=== PATIENT | male | born 2000 | race Caucasian/White ===

== ENCOUNTER 2023-03-30 22:47 | Emergency (ER) | payer BC, SELFPAY ==
[2023-03-30 22:50] VITALS: BP 138/90; PULSE 125; RESP 18; TEMP 36.8; O2SAT 97
--- NOTE | 2023-03-31 00:04 | CRLHL7_ITS ---
For Patients: As a result of the Century Cures Act, medical imaging exams and procedure reports are released immediately into your electronic medical record. You may view this report before your referring provider. If you have questions, please contact your health care provider. INDICATION: New atrial fibrillation TECHNIQUE: Chest 2 views. COMPARISON: None FINDINGS: Cardiovascular and mediastinum: Heart size and vasculature are normal in caliber and appearance. Mediastinum is within normal limits. Lungs and pleural spaces: Lungs are clear. No sign of infiltrate or mass. No sign of pleural effusion. No pneumothorax. Bones and soft tissues: No significant findings. IMPRESSION: No sign of acute disease. Dictated by Jenn Sharp MD @ 03/31/2023 12:59:29 AM (Electronically Signed)
--- NOTE | 2023-03-31 00:26 | ED_ITS ---
HPI - General Adult General Chief complaint: Chest Pain Stated complaint: Sudden heart arrhythmia Time Seen by Provider: 03/31/23 00:01 Source: patient and family Mode of arrival: ambulatory Limitations: no limitations History of Present Illness HPI narrative: 22-year-old male with no prior cardiac history presents to the emergency department for evaluation of irregular heart rate that started about 1 hour prior to arrival. Reports that his symptoms started at rest, feels like heart is beating irregularly with some beats being hard and some beats being soft. He has no prior history of arrhythmia. Dad is present and reports that he has been diagnosed with an abnormal heart rhythm personally but does not remember which 1, he reports he was told to stay away from caffeine and that he has not had any subsequent problems with this. It did start is a young man. Patient does not have a known history of sleep apnea. He has been told that his blood pressure has been elevated at doctor's visits in the past but has never been formally treated nor worked up for hypertension. He reports a history of depression, does take bupropion and another unknown antidepressant which he is going to look up for me following the completion of our interview. He denies alcohol use, no drug use, no stimulant use. Does not drink large amounts of caffeine. No recent trauma or injury. He did have a recent upper respiratory infection, did not receive medical care for this, as his symptoms were not severe. Describes influenza like or COVID like illness that resolved a few days ago. He is no longer having fevers, body aches. He does still have a mild upper respiratory infection with some nasal congestion as a result but no significant shortness of breath. Has not tried any medications to help with his symptoms. He states his past medical history is essentially benign besides depression and history of elevated blood pressure without treatment. Home meds are bupropion and some other antidepressant. Nonsmoker. ROS is notable for the palpitations and recent URI symptoms as above, otherwise denies times 12 systems. Related Data Home Medications Medication Instructions Recorded Confirmed duloxetine 03/30/23 Allergies Allergy/AdvReac Type Severity Reaction Status Date / Time azithromycin [From Zithromax] Allergy Intermediate rash Verified 03/30/23 22:58 PFSH PFSH Social History Smoking Status: Never smoker Do you use any of these nicotine containing products: None Exam Const: Vital Signs, click to edit/add: Vital Signs - 24 hr 03/30/23 22:50 Temperature 98.3 F Pulse Rate [Left P ulse Oximeter] 125 H Respiratory Rate 18 Blood Pressure [Ri ght Upper Arm] 138/90 H Pulse Oximetry 97 Oxygen Delivery Me thod Room Air Documenting provider has reviewed patient's vital signs: yes Common normals: no apparent distress and alert General appearance: cooperative, comfortable and well kempt Orientation/consciousness: Yes awake HENMT: Common normals: normocephalic Head and scalp: normocephalic Face and sinus: normal facial exam Mouth: oral and palatal mucosa normal Eye: Common normals: conjunctivae normal General eye: normal appearance of both eyes Conjunctiva: conjunctiva(e) normal Neck & C-Spine: Common normals: full ROM and no lymphadenopathy Resp: Common normals: normal respiratory effort, no use of accessory muscles and clear to auscultation bilaterally Effort & inspection: able to speak in complete sentences Auscultation: clear to auscultation bilaterally Cardio: Common normals: regular rate, regular rhythm, S1 normal heart sound, S2 normal heart sound and no murmurs Rate: regular rate Rhythm: regular rhythm Heart sounds: S1 normal and S2 normal GI: Common normals: Normal to inspection, nondistended, normoactive bowel sounds present, soft to palpation, non-tender, no hepatosplenomegaly and no masses Palpation: soft and no hepatosplenomegaly Extremity: Common normals: no pedal edema Neuro: Sensorium/orientation: awake and alert Speech: speech normal Motor exam: strength 5/5 throughout, no tremor noted and no movement abn ormalities noted Psych: Appearance: well kempt Attitude: engaged Activity/motor behavior: appropriate eye contact Mood and affect: euthymic mood Insight: insight good Judgement: judgment good Skin: Common normals: no rashes or lesions noted General skin exam: no rashes or lesions noted Course Course ED Course: Monitor in the room showing irregular rhythm, but P-waves do appear present in the room. Minimally symptomatic. Recommend chest x-ray, EKG, basic labs and cardiac monitoring. Aspirin will be given. Await findings. Reevaluation(s) Time of Reevaluation #1: 02:15 Reevaluation #1: Patient continues to be in normal sinus rhythm and is now asymptomatic. I did do a repeat EKG in this confirms normal sinus rhythm with of slight widening of the QRS complex which is suggestive of a possible mild underlying right bundle branch block but otherwise no abnormalities or ischemia. The 1st EKG was a little suspicious for underlying atrial fibrillation but when I was watching on the monitors he did clearly have P waves. Now he is in nice regular rhythm. Labs are reviewed and are all reassuring. If this is AFib, based on his age and other risk factors, he does not need anticoagulation. He does need further workup. He will make a follow-up appointment with his primary care doctor soon as possible to discuss echo, Holter monitor and cardiology follow-up. He will avoid caffeine but will continue his psychotropic medications at this time. Alarm symptoms that would warrant ED presentation including exertional symptoms, severely high heart rate, chest pain were reviewed. I have encouraged him to consider getting a smart watch with arrhythmia monitoring capabilities. He does seem interested in this. He will arrange his outpatient studies as described above. I do not want to start a beta-agata until we have more information. Follow-up heart rate is 91. Vital Signs Vital signs: Initial Vital Signs Temperature 98.3 F 03/30/23 22:50 Temperature Source Oral 03/30/23 22:50 Pulse Rate 125 H 03/30/23 22:50 Pulse Rhythm Regular 03/30/23 22:50 Respiratory Rate 18 03/30/23 22:50 Blood Pressure 138/90 H 03/30/23 22:50 Blood Pressure Mean 106 H 03/30/23 22:50 Blood Pressure Position Sitting 03/30/23 22:50 Pulse Oximetry 97 03/30/23 22:50 Oxygen Delivery Method Room Air 03/30/23 22:50 Vital Signs Temperature 98.3 F 03/30/23 22:50 Pulse Rate 125 H 03/30/23 22:50 Respiratory Rate 18 03/30/23 22:50 Blood Pressure 138/90 H 03/30/23 22:50 Pulse Oximetry 97 03/30/23 22:50 Oxygen Delivery Method Room Air 03/30/23 22:50 Temperature 98.3 F 03/30/23 22:50 Pulse Rate 125 H 03/30/23 22:50 Respiratory Rate 18 03/30/23 22:50 Blood Pressure 138/90 H 03/30/23 22:50 Pulse Oximetry 97 03/30/23 22:50 Oxygen Delivery Method Room Air 03/30/23 22:50 Medical Decision Making Lab Data Lab results reviewed: Yes I reviewed the patient's lab results Lab results narrative: All reassuring Labs: Lab Results 03/31/23 03/31/23 03/31/23 Range/Units 00:04 00:18 01:30 WBC 11.50 H (4.50-11.00) K/uL RBC 5.37 (4.30-5.90) m/uL Hgb 15.1 (13.5-17.5) gm/dL Hct 45.8 (37.0-53.0) % MCV 85 (80-100) fL MCH 28 (26-34) pg MCHC 33 (32-36) gm/dL RDW Coeff of Lance 12.9 (11.5-15.5) % Plt Count 456 H (140-440) K/uL Neut % (Auto) 68.9 (42.0-72.0) % Lymph % (Auto) 18.1 L (20-44) % [place] % (Auto) 8.2 (0.0-11.0) % Eos % (Auto) 4.2 (0.0-7.0) % Baso % (Auto) 0.5 (0.0-3.0) % Neut # (Auto) 7.90 H (1.7-7.0) K/uL Lymph # (Auto) 2.10 (0.90-2.90) K/uL [place] # (Auto) 0.90 (0.00-0.90) K/UL Eos # (Auto) 0.50 (0.00-0.50) K/uL Baso # (Auto) 0.10 (0.00-0.30) K/uL Abs Immat Gran (auto) 0.00 (0.00-0.30) K/uL Imm/Tot Granulo (auto) 0.1 % D-Dimer Quant (PE/DVT) < 0.27 (0.00-0.50) ug/ml Sodium 140 (135-149) mmol/L Potassium 3.8 (3.6-5.1) mmol/L Chloride 102 (96-114) mmol/L Carbon Dioxide 26 (20-32) mmol/L Anion Gap 12 (7-15) mEq/L BUN 10 (5-24) mg/dL Creatinine 0.7 (0.5-1.5) mg/dL Estimated GFR 134 ml/min Glucose 68 (60-115) mg/dL Calcium 8.8 (8.4-10.6) mg/dL Magnesium 2.3 (1.5-2.6) mg/dL Troponin I < 0.01 L (0.01-0.04) ng/mL NT-Pro-B Natriuret Pep < 20 pg/mL TSH 2.760 (0.270-4.200) uIU/mL Urine Color Yellow (Yellow) Urine Appearance Clear (Clear) Urine pH 6.5 (5.0-8.5) Ur Specific [place] 1.020 (1.000-1.030) Urine Protein Negative (Negative) Urine Glucose (UA) Negative (Negative) Urine Ketones Negative (Negative) Urine Blood Negative (Negative) Urine Nitrite Negative (Negative) Urine Bilirubin Negative (Negative) Urine Urobilinogen 2.0 A (0.2-1.0) Ur Leukocyte Esterase Negative (Negative) Urine Opiates Screen Negative (Negative) Ur Oxycodone Screen Negative (Negative) Urine Methadone Screen Negative (Negative) Ur Propoxyphene Screen Negative (Negative) Ur Barbiturates Screen Negative (Negative) U Tricyclic Antidepress Negative (Negative) Ur Phencyclidine Scrn Negative (Negative) Ur Amphetamines Screen Negative (Negative) U Methamphetamines Scrn Negative (Negative) U Benzodiazepines Scrn Negative (Negative) Urine Cocaine Screen Negative (Negative) U Marijuana (THC) Screen Negative (Negative) Ur Drug Screen Comment See Note POC Troponin I 0.01 (0.01-0.04) ng/ml Imaging Data Chest x-ray: Attestation: I have reviewed the pertinent imaging results. My impression: Normal chest x-ray Radiologist's impression: IMPRESSION: No sign of acute disease. Dictated by Jenn Sharp MD @ 03/31/2023 12:59:29 AM ECG Data Attestation: I personally reviewed and interpreted this ECG as follows: Interpretation: Irregular rhythm, rate 104. Computer interpreting as AFib collected on the EKG that was done prior to my arrival for my shift. I enter the room upon the start of my shift knees clearly in a sinus arrhythmia as P waves are obviously present. This tracing of EKG does not clearly show P waves and is quite irregular with slight widening of the QRS suggestive of a possible underlying right bundle branch block any also does have signs of a slight right axis deviation. No obvious ischemic changes. Discharge Plan Discharge Clinical Impression: Cardiac arrhythmia Patient Disposition: Home w/ Parent or Adult Condition: Improved Instructions: A-fib (Atrial Fibrillation) (ED) Additional Instructions: As we discussed, your heart was in an irregular rhythm. It did quickly convert out of it. By the time I saw you, you are back in what we call sinus rhythm. One of the tracings did catch an abnormal rhythm that could be atrial fibrillation. This is a common type of abnormal heart rhythm. All of your blood work shows no obvious reason for this happening. As we discussed, your bruit appropriate in, sometimes a genetic predisposition and even possible underlying sleep apnea could all be factors. We need more information. You need to make a follow-up appointment with a primary care doctor as soon as possible to arrange an echo which is an ultrasound of the heart and to have a Holter monitor placed. This is a wear a heart monitor that will help us detect the abnormal heart rhythm again and give a some ideas on how often it happens. I would also like your primary care doctor to refer you to a medical technologist microbiology to fur ther discuss the findings. As we discussed, if you start having severe chest pain, your severely short of breath in the setting of this irregular heart rate, you should come into the emergency department again. Consider a smart watch type device with an arrhythmia detector to help you monitor long-term. Because of your age and other risk factors, you do not need to take blood thinners or even aspirin at this time. Your primary doctor will make decisions on if you should be on heart rate controlling medicine once all of the studies are back but I do not recommended at this time. You may return to full, unrestricted work and school. Activity Level: No Restrictions Discharge Diet: Regular Prescriptions: No Action duloxetine capsule Follow Up/Referrals: Malcolm Ramon DO [Primary Care Provider] - Stand Alone Forms: [employer] Info Instructions
[2023-03-31 00:28] LABS: Basophils Percent Auto 0.5 % (0.0-3.0); Eosinophils Percent Auto 4.2 % (0.0-7.0); Hematocrit 45.8 % (37.0-53.0); Hemoglobin* 15.1 gm/dL (13.5-17.5); Immature Granulocytes Pct Auto 0.1 %; Lymphocytes Percent Auto 18.1 % (20-44); Mean Corpuscular HGB Conc 33 gm/dL (32-36); Mean Corpuscular Hemoglobin 28 pg (26-34); Mean Corpuscular Volume 85 fL (80-100); Monocytes Percent Auto 8.2 % (0.0-11.0); Neutrophils Percent Auto 68.9 % (42.0-72.0); Platelet Count* 456 K/uL (140-440); RDW Coefficient of Variation % 12.9 % (11.5-15.5); Red Blood Count 5.37 m/uL (4.30-5.90)
[2023-03-31 00:29] LABS: Slide Review Reflex No
[2023-03-31 00:51] LABS: D Dimer Quantitative* < 0.27 ug/ml (0.00-0.50)
[2023-03-31 00:52] LABS: Chloride* 102 mmol/L (96-114); Sodium* 140 mmol/L (135-149)
[2023-03-31 00:53] LABS: Potassium* 3.8 mmol/L (3.6-5.1)
[2023-03-31 00:55] LABS: Anion Gap 12 mEq/L (7-15); Carbon Dioxide* 26 mmol/L (20-32); Creatinine* 0.7 mg/dL (0.5-1.5); Estimated Glomerular Filt Rate 134 ml/min
[2023-03-31 00:56] LABS: Blood Urea Nitrogen* 10 mg/dL (5-24); Calcium* 8.8 mg/dL (8.4-10.6); Glucose* 68 mg/dL (60-115); Magnesium* 2.3 mg/dL (1.5-2.6)
[2023-03-31] MEDS: ASPIRIN 81 MG TAB.CHEW 324 MG PO (01:10)
[2023-03-31 01:11] LABS: NT Pro B Type NatriureticPept* < 20 pg/mL; Troponin I* < 0.01 ng/mL (0.01-0.04)
[2023-03-31 01:16] LABS: Troponin, Point-of-Care* 0.01 ng/ml (0.01-0.04)
[2023-03-31 01:41] LABS: Appearance Urine Clear (Clear); Bilirubin Urine Negative (Negative); Blood Urine Negative (Negative); Color Urine Yellow (Yellow); Glucose Urine Negative (Negative); Ketones Urine Negative (Negative); Leukocyte Esterase Urine Negative (Negative); Nitrite Urine Negative (Negative); Protein Urine Negative (Negative); pH Urine 6.5 (5.0-8.5)
[2023-03-31 01:48] LABS: Amphetamine Screen Urine Negative (Negative); Barbiturate Screen Urine Negative (Negative); Benzodiazepines Screen Urine Negative (Negative); Cannabinoid Screen Urine Negative (Negative); Cocaine Screen Urine Negative (Negative); Methadone Screen Urine Negative (Negative); Methamphetamines Screen Urine Negative (Negative); Opiate Screen Urine Negative (Negative); Oxycodone Screen Urine Negative (Negative); Phencyclidine Screen Urine Negative (Negative); Tricyclic Antidepressant Urine Negative (Negative)
== END 2023-03-31 02:37 | disposition home or self-care (01) ==
PROVIDERS: Emergency Provider Family Medicine; PCP Pediatrics
DX: I49.9 Cardiac arrhythmia, unspecified (principal)
CPT/HCPCS: 36415; 71046; 80048; 80306; 81003; 83735; 83880; 84443; 84484; 85025; 85379; 93005; 99284; 99285; A9270